=== PATIENT | male | born 1955 | race Caucasian/White ===

== ENCOUNTER 2018-07-18 10:38 | Emergency (ER) | payer MEDICARE ==
[~2018-07-18] VITALS: Ht 185.4 cm; Wt 142.9 kg
[~2018-07-18 10:38] MED LIST: NORCO 5-325 TA1 EACH PO; PERCOCET 5-3251 EACH; PRAVASTATIN SOD20 MG; ZOCOR 20 MG TAB20 M1 PO
[2018-07-18] MEDS ORDERED: ZYRTEC10 M2 PO (10:54)
[2018-07-18] MEDS ORDERED: FLONASE 0.05%50 MCG NASAL (10:54)
[2018-07-18] MEDS ORDERED: LOVASTATIN 20 M20 MG PO (10:54)
[2018-07-18 11:13] LABS: URINE BILIRUBIN NEGATIVE (Negative); URINE BLOOD TRACE (Negative); URINE CLARITY CLEAR; URINE COLOR YELLOW; URINE GLUCOSE-RANDOM NEGATIVE (Negative); URINE KETONES NEGATIVE (Negative); URINE LEUKOCYTES-REFLEX NEGATIVE (Negative); URINE NITRITE-REFLEX NEGATIVE (Negative); URINE PROTEIN NEGATIVE (Negative); URINE SPECIFIC GRAVITY 1.025 (1.005-1.030); URINE UROBILINOGEN 0.2 E.U./dl (0.2-1.0)
[2018-07-18] MEDS ORDERED: IBUPROFEN 800800 M1 PO (11:52)
[2018-07-18] MEDS ORDERED: ROBAXIN500 MG PO (11:52)
[2018-07-18 12:10] VITALS: BP 116/74
== END 2018-07-18 12:11 | disposition home or self-care (01) ==
LOC: M.ERS 10:38
PROVIDERS: Nurse Practitioner Family
DX: S16.1XXA Strain of muscle, fascia and tendon at neck level, initial encounter (principal); S30.1XXA Contusion of abdominal wall, initial encounter; G47.30 Sleep apnea, unspecified; Z96.643 Presence of artificial hip joint, bilateral; V49.69XA Unspecified car occupant injured in collision with other motor vehicles in traffic accident, initial encounter; Y93.89 Activity, other specified; Y92.89 Other specified places as the place of occurrence of the external cause; Y99.8 Other external cause status

== ENCOUNTER 2018-12-23 19:15 | Emergency (ER) | payer MEDICARE ==
[~2018-12-23] VITALS: Ht 185.4 cm; Wt 147.4 kg
[~2018-12-23 19:15] MED LIST changes: +FLONASE 0.05%50 MCG NASAL; +IBUPROFEN 800800 M1 PO; +LOVASTATIN 20 M20 MG PO; +ROBAXIN500 MG PO; +ZYRTEC10 M2 PO
[2018-12-23] MEDS ORDERED: IBUPROFEN 600600 M1 PO (20:15)
[2018-12-23] MEDS ORDERED: NORCO 5-325 TA1 EACH PO (20:15)
[2018-12-23 20:39] VITALS: BP 132/75
== END 2018-12-23 20:39 | disposition home or self-care (01) ==
LOC: M.ERS 19:15
DX: S62.323A Displaced fracture of shaft of third metacarpal bone, left hand, initial encounter for closed fracture (principal); G47.30 Sleep apnea, unspecified; E78.00 Pure hypercholesterolemia, unspecified; Z96.643 Presence of artificial hip joint, bilateral; X58.XXXA Exposure to other specified factors, initial encounter; Y93.89 Activity, other specified; Y92.89 Other specified places as the place of occurrence of the external cause; Y99.8 Other external cause status